=== PATIENT | female | born 1950 | race Caucasian/White ===

== ENCOUNTER 2019-01-06 07:29 | Inpatient (IN) | payer MEDICARE ==
[2018-12-31 14:35] LABS: BASOPHILS % (AUTO) 0.2 % (0-1); EOSINOPHILS % (AUTO) 0 % (0-6); LYMPHOCYTES # (AUTO) 0.6 X10'3 (1.1-4.8); MEAN CORPUSCULAR HEMOGLOBIN 34.5 PG (27.0-31.0); MEAN CORPUSCULAR HGB CONC 34.2 g/dL (33.0-36.5); MEAN PLATELET VOLUME 7.8 FL (7.4-10.4); MONOCYTES # (AUTO) 0.3 X10'3 (0-0.9); MONOCYTES % (AUTO) 3.5 % (2-12); NEUTROPHILS # (AUTO) 7.8 X10'3 (1.8-7.7); NEUTROPHILS % (AUTO) 89.3 % (42-75); PRE OP HEMATOCRIT 39.7 % (35.0-45.0); PRE OP HEMOGLOBIN 13.6 g/dL (12.0-16.0); PRE OP PLATELET COUNT 348 X10'3 (140-440); RED BLOOD COUNT 3.93 X10'6 (4.20-5.60); RED CELL DISTRIBUTION WIDTH 14.6 % (11.5-14.5)
[2018-12-31 14:38] LABS: PRE OP PROTIME 10.4 SECONDS (9.0-12.0)
[2018-12-31 14:50] LABS: ALBUMIN/GLOBULIN RATIO 1.2 (1.1-1.5); ALKALINE PHOSPHATASE 72 IU/L (46-116); BLOOD UREA NITROGEN 20 MG/DL (7-18); BUN/CREATININE RATIO 32.8 (6.6-38.0); CHLORIDE 101 MMOL/L (99-107); CREATININE 0.61 MG/DL (0.40-0.90); PRE OP ALT 44 U/L (30-65); PRE OP ANION GAP 7 (8-16); PRE OP AST 29 U/L (10-37); PRE OP BILIRUB, TOTAL 0.2 MG/DL (0.0-1.0); PRE OP GLUCOSE 99 MG/DL (70-104); PRE OP POTASSIUM 4.2 MMOL/L (3.4-5.1); PRE OP SODIUM 139 MMOL/L (135-145); TOTAL CARBON DIOXIDE 31.3 MMOL/L (24-32); TOTAL PROTEIN 7.4 G/DL (6.4-8.2); eGFR > 90 ML/MIN
[~2019-01-06] VITALS: Ht 142.9 cm; Wt 49.9 kg
[2019-01-06] VITALS (20 sets, daily range): BP systolic 122–171; BP diastolic 44–93
[~2019-01-06 07:29] MED LIST: ACET-2119 PO; ASCO500C15 PO; BIOT5CAP2 PO; CALC1TAB5 PO; CETI-194 PO; CYAN100097 SL; D-3 PO; D2 PO; DIPH25CA83 PO; DOCUSATE PO; HYDR50TA65 PO; K-2 PO; KRIL500C PO; LEVO100T PO; LUTE1CAP4 PO; MULT-378 PO; NORT75CA PO; PRE5T PO; SENNA PO; TEMA30CA5 PO; TRAM1TAB PO; TURM538C PO; UBID1CAP54 PO; VANCOMYCIN INJ 1000 MG in NORMAL SALINE 250ml IV.SOLN IV ONE; VENL150C2 PO; cefazolin/dext.iso 2gm/50ml 50 ML IV ONE; famotidine 20mg tablet PO ONE; hydrocortisone sod succ/PF 100mg/2ml inj. IV ONE; ringers solution, lacted 1,000 ML IV SCH; tranexamic acid inj. 1,000 MG in normal saline 100 ML IV ONE
[2019-01-06] MEDS ORDERED: ketorolac trometh. 30mg/ml inj. ONE (09:01)
[2019-01-06] MEDS ORDERED: ROPIVAcaine 0.5% (5mg/ml) 30ml vial ONE ×2 (09:01→11:43)
[2019-01-06] MEDS ORDERED: mineral oil 10ml sterile, topical TP ONE (09:01)
[2019-01-06] MEDS ORDERED: tetracaine 1% (10mg/ml) pres. free inj. ONE (10:07)
[2019-01-06] MEDS ORDERED: diphenhydrAMINE 50 mg/ml inj ONE (10:42)
[2019-01-06] MEDS ORDERED: fentaNYL/PF 50MCG/1 ML 2ML syringe ONE ×2 (10:51→11:47)
[2019-01-06] MEDS ORDERED: MIDAZolam 5mg/5ml vial ONE (11:13)
[2019-01-06] MEDS ORDERED: tranexamic acid inj. 500 MG in normal saline 100ml IV soln 100 ML IV ONE ×3 (11:15→19:00)
[2019-01-06] MEDS ORDERED: propofol inj 20 ML IV ONE ×3 (12:19→12:22)
[2019-01-06] MEDS ORDERED: LIDOcaine 1%/PF 5ML 10 MG/ML VIAL ONE (12:22)
[2019-01-06] MEDS ORDERED: ketamine 50mg/5ml syringe ONE (12:27)
[2019-01-06] MEDS ORDERED: meperidine/PF 50mg/ml syringe ONE (12:43)
[2019-01-06] MEDS ORDERED: HYDROmorphone inj. 0.5 MG/0.5 ML DISP.SYRIN IV PRN (13:10)
[2019-01-06] MEDS ORDERED: diphenhydrAMINE 25mg capsule PO PRN ×2 (13:10)
[2019-01-06] MEDS ORDERED: bisacodyl 10mg suppository rectal RC PRN (13:10)
[2019-01-06] MEDS ORDERED: acetaminophen 325mg tablet PO PRN (13:10)
[2019-01-06] MEDS ORDERED: K2 PO SCH (13:10)
[2019-01-06] MEDS ORDERED: ondansetron/PF 4mg/2ml inj IV PRN ×2 (13:10→13:20)
[2019-01-06] MEDS ORDERED: hydrOXYzine 25 MG tablet PO PRN (13:10)
[2019-01-06] MEDS ORDERED: oxyCODONE IR 5mg (immed. release) tablet PO PRN (13:10)
[2019-01-06] MEDS ORDERED: magnesium hydroxide 30ml (MOM) UD suspension PO PRN (13:10)
--- NOTE | 2019-01-06 13:15 | NUR ---
ADMITTED TO PACU FROM OR ACCOMPANIED BY ANESTHESIA. INTIAL PHYSICAL ASSESSMENT DONE AND RECORDED. REPORT RECEIVED FROM ANESTHESIA.
[2019-01-06] MEDS ORDERED: ROPIVAcaine 0.2%/PF PUMP/bolus 400 ML ADDCANAL SCH (13:19)
[2019-01-06] MEDS ORDERED: ringers solution, lacted 1,000 ML IV SCH (13:19)
[2019-01-06] MEDS ORDERED: proCHLORperazine 10 MG/2 ml inj IV PRN (13:20)
[2019-01-06] MEDS ORDERED: meperidine/PF 25mg/ml syringe IV PRN ×3 (13:20)
[2019-01-06] MEDS ORDERED: morphine 4 MG/ML inj SYRINge IV PRN ×2 (13:20)
[2019-01-06] MEDS: acetaminophen 325mg tablet PO SCH ×2 (14:00→20:58)
[2019-01-06] MEDS ORDERED: acetaminophen 325mg tablet PO SCH (14:00)
--- NOTE | 2019-01-06 14:45 | NUR ---
PACU DISCHARGE CRITERIA MET, REPORT GIVEN TO FLOOR. DENIES PAIN OR DISCOMFORT, TRANSFERRED TO ROOM IN STABLE GOOD CONDITION.
[2019-01-06] MEDS: ROPIVAcaine 0.2%/PF PUMP/bolus 550 ML INTERSCALE SCH ×2 (16:00→17:00)
[2019-01-06] MEDS: oxyCODONE IR 5mg (immed. release) tablet PO PRN ×2 (16:09→20:59)
[2019-01-06] MEDS: potassium cl 20mEq in 1/2 NS 1,000 ML IV SCH (16:49)
[2019-01-06] MEDS: ascorbic acid 500mg tablet PO SCH ×2 (16:54→21:01)
[2019-01-06] MEDS: ceFAZolin 1GM/D5W- ADD-VANTAGE 50 ML IV SCH (16:55)
[2019-01-06] MEDS ORDERED: diphenhydrAMINE 25mg capsule PO SCH (17:00)
[2019-01-06] MEDS ORDERED: TRAMADOL HCL PO SCH (17:00)
[2019-01-06] MEDS ORDERED: ACETAMINOPHEN PO SCH (17:00)
[2019-01-06] MEDS ORDERED: [UNRECOGNIZED DRUG - OTHER] PO SCH (17:00)
--- NOTE | 2019-01-06 18:06 | NUR ---
OnQ pump at 10ml/hr
[2019-01-06] MEDS: HYDROmorphone 1 mg/ml syringe IV PRN ×2 (19:02→23:57)
[2019-01-06] MEDS ORDERED: vancomycin/NS 1 GM ADD-VANTAGE 250 ML IV SCH (20:00)
[2019-01-06] MEDS ORDERED: TURMERIC ROOT EXTRACT PO SCH (20:00)
[2019-01-06] MEDS: enoxaparin 30mg/0.3ml syringe SQ SCH (20:00)
--- NOTE | 2019-01-06 20:00 | NUR ---
OnQ pump rate changed from 10cc/hr to 12cc/hr
[2019-01-06] MEDS ORDERED: SENNA PO SCH (21:00)
[2019-01-06] MEDS ORDERED: DOCUSATE PO SCH (21:00)
[2019-01-06] MEDS: sennosides 8.6mg tablet PO SCH (21:00)
[2019-01-06] MEDS: temazepam 15mg capsule PO SCH (21:01)
[2019-01-07] VITALS (7 sets, daily range): BP systolic 112–146; BP diastolic 39–77
[2019-01-07] MEDS: acetaminophen 325mg tablet PO SCH ×4 (01:30→20:50)
[2019-01-07] MEDS: ceFAZolin 1GM/D5W- ADD-VANTAGE 50 ML IV SCH (01:37)
[2019-01-07] MEDS: potassium cl 20mEq in 1/2 NS 1,000 ML IV SCH ×4 (01:37→21:10)
[2019-01-07] MEDS: oxyCODONE IR 5mg (immed. release) tablet PO PRN ×4 (03:20→18:11)
[2019-01-07] MEDS: HYDROmorphone 1 mg/ml syringe IV PRN ×3 (05:12→15:49)
--- NOTE | 2019-01-07 06:16 | NUR ---
Problems reprioritized. Patient report given, questions answered & plan of care reviewed with JESSICA NUNEZ.
[2019-01-07 06:18] LABS: ANION GAP 6 (8-16); CHLORIDE 106 MMOL/L (99-107); POTASSIUM 3.4 MMOL/L (3.5-5.1); SODIUM 143 MMOL/L (135-145)
[2019-01-07 06:39] LABS: BASOPHILS % (AUTO) 0.5 % (0-1); EOSINOPHILS # (AUTO) 0.1 X10'3 (0-0.9); EOSINOPHILS % (AUTO) 1.5 % (0-6); HEMATOCRIT 28.9 % (35.0-45.0); HEMOGLOBIN 9.7 g/dl (12.0-16.0); LYMPHOCYTES % (AUTO) 24.7 % (21-51); MEAN CORPUSCULAR HEMOGLOBIN 34.4 PG (27.0-31.0); MEAN CORPUSCULAR HGB CONC 33.7 g/dL (33.0-36.5); MEAN PLATELET VOLUME 7.7 FL (7.4-10.4); MONOCYTES % (AUTO) 12.3 % (2-12); NEUTROPHILS # (AUTO) 4.9 X10'3 (1.8-7.7); PLATELET COUNT 247 X10'3 (140-440); RED BLOOD COUNT 2.84 X10'6 (4.20-5.60); RED CELL DISTRIBUTION WIDTH 14.5 % (11.5-14.5); WHITE BLOOD COUNT 8.1 X10'3 (4.5-11.0)
[2019-01-07] MEDS ORDERED: D2 PO SCH (08:00)
[2019-01-07] MEDS ORDERED: CHOLECALCIFEROL 10000 UNIT PO SCH (08:00)
[2019-01-07] MEDS ORDERED: non-formulary drug (Ubidecarenone/Vit E Acetate (Co Q-10 100 Mg Softgel) 1 EACH) PO SCH (08:00)
[2019-01-07] MEDS ORDERED: multivitamins, therapeutics tablet PO SCH (08:00)
[2019-01-07] MEDS: nortriptyline 25mg capsule PO SCH (08:00)
[2019-01-07] MEDS ORDERED: non-formulary drug (Lutein/Zeaxanthin (Lutein-Zeaxanthin 25-5 Mg Sfgl) 1 EACH) PO SCH (08:00)
[2019-01-07] MEDS: VITAMIN D 10000 UNIT PO SCH (08:00)
[2019-01-07] MEDS: venlafaxine XR 75mg capsule (Q24H) PO SCH (08:10)
[2019-01-07] MEDS: predniSONE 5mg tablet PO SCH (08:10)
[2019-01-07] MEDS: cetirizine 10mg tablet PO SCH (08:11)
[2019-01-07] MEDS: levoTHYROXINE 100mcg tablet PO SCH (08:11)
[2019-01-07] MEDS: ascorbic acid 500mg tablet PO SCH ×4 (08:11→20:49)
[2019-01-07] MEDS: enoxaparin 30mg/0.3ml syringe SQ SCH ×2 (08:15→20:51)
--- NOTE | 2019-01-07 11:57 | NUR ---
Student documentation: I have reviewed all interventions, assessments performed and documented by Marisol Stafford. Student Medication Administration: For this medication-pass time frame, all medication were reviewed, dispensed, administered and documented per hospital policy by Marisol Stafford.
[2019-01-07] MEDS: FOLIC ACID PO SCH ×3 (12:30→20:57)
[2019-01-07] MEDS: MULTIVIT PO SCH ×3 (12:30→20:57)
[2019-01-07] MEDS: IRON PO SCH ×3 (12:30→20:57)
[2019-01-07] MEDS: CALCIUM PO SCH ×3 (12:30→20:57)
[2019-01-07] MEDS: VITAMIN K PO SCH ×3 (12:30→20:57)
[2019-01-07] MEDS: MINERALS PO SCH ×3 (12:30→20:57)
--- NOTE | 2019-01-07 13:55 | NUR ---
Joint replacement consult: Pt seen by RD for written/verbal high protein ed. RD reviewed high protein needs for wound healing, immune strength, high protein foods, and protein supplementation options. RD contact information provided in case of further questions. Pt agrees to cottage cheese x2 BIDLD; dietary notified. Pt hx dino-en-y takes bariatric MVI w/ protein snacks at bedside. 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 Addendum: 01/07/19 at [address] Amended: Links added.
[2019-01-07] MEDS: sennosides 8.6mg tablet PO SCH (20:48)
[2019-01-07] MEDS: celeCOXIB 100mg capsule PO SCH (20:49)
[2019-01-07] MEDS: temazepam 15mg capsule PO SCH (20:50)
[2019-01-08] MEDS: acetaminophen 325mg tablet PO SCH ×2 (01:33→07:53)
[2019-01-08] MEDS: oxyCODONE IR 5mg (immed. release) tablet PO PRN ×2 (01:34→05:41)
[2019-01-08] MEDS: potassium cl 20mEq in 1/2 NS 1,000 ML IV SCH (05:10)
[2019-01-08] MEDS: ROPIVAcaine 0.2%/PF PUMP/bolus 550 ML INTERSCALE SCH (05:41)
[2019-01-08 06:00] VITALS: BP 149/65
--- NOTE | 2019-01-08 06:30 | NUR ---
Problems reprioritized. Patient report given, questions answered & plan of care reviewed with JESSICA ALMEIDA.
[2019-01-08 06:49] LABS: BASOPHILS % (AUTO) 0.6 % (0-1); EOSINOPHILS # (AUTO) 0.1 X10'3 (0-0.9); HEMATOCRIT 27.7 % (35.0-45.0); HEMOGLOBIN 9.5 g/dl (12.0-16.0); LYMPHOCYTES # (AUTO) 1.2 X10'3 (1.1-4.8); LYMPHOCYTES % (AUTO) 17.8 % (21-51); MEAN CORPUSCULAR HEMOGLOBIN 34.5 PG (27.0-31.0); MEAN CORPUSCULAR HGB CONC 34.4 g/dL (33.0-36.5); MEAN CORPUSCULAR VOLUME 100.4 FL (78-98); MEAN PLATELET VOLUME 7.6 FL (7.4-10.4); MONOCYTES # (AUTO) 0.9 X10'3 (0-0.9); MONOCYTES % (AUTO) 13.8 % (2-12); NEUTROPHILS # (AUTO) 4.4 X10'3 (1.8-7.7); NEUTROPHILS % (AUTO) 66.8 % (42-75); PLATELET COUNT 237 X10'3 (140-440); RED BLOOD COUNT 2.76 X10'6 (4.20-5.60); RED CELL DISTRIBUTION WIDTH 14.2 % (11.5-14.5); WHITE BLOOD COUNT 6.6 X10'3 (4.5-11.0)
--- NOTE | 2019-01-08 06:55 | NUR ---
Patient in room [facility]THO 4013. I have received report from Ana LOPEZ and had the opportunity to ask questions and assume patient care.
[2019-01-08] MEDS: VITAMIN K PO SCH (07:30)
[2019-01-08] MEDS: CALCIUM PO SCH (07:30)
[2019-01-08] MEDS: MINERALS PO SCH (07:30)
[2019-01-08] MEDS: FOLIC ACID PO SCH (07:30)
[2019-01-08] MEDS: MULTIVIT PO SCH (07:30)
[2019-01-08] MEDS: IRON PO SCH (07:30)
[2019-01-08] MEDS: VITAMIN D 10000 UNIT PO SCH (07:47)
[2019-01-08] MEDS: enoxaparin 30mg/0.3ml syringe SQ SCH (07:51)
[2019-01-08] MEDS: ascorbic acid 500mg tablet PO SCH (07:52)
[2019-01-08] MEDS: levoTHYROXINE 100mcg tablet PO SCH (07:53)
[2019-01-08] MEDS: celeCOXIB 100mg capsule PO SCH (07:53)
[2019-01-08] MEDS: nortriptyline 25mg capsule PO SCH (07:53)
[2019-01-08] MEDS: predniSONE 5mg tablet PO SCH (07:54)
[2019-01-08] MEDS: cetirizine 10mg tablet PO SCH (07:54)
[2019-01-08] MEDS: venlafaxine XR 75mg capsule (Q24H) PO SCH (07:55)
[2019-01-08 10:00] VITALS: BP 136/52
--- NOTE | 2019-01-08 10:30 | NUR ---
patient discharged to home with with all belongings, patient educated on new meds, onQ pump and kenneth dressing, patient stable upon discharge
[2019-01-08] MEDS ORDERED: acetaminophen 325mg tablet PO PRN (13:10)
== END 2019-01-08 10:25 | disposition home or self-care (01) | DRG 470 ==
LOC: PAS IN 07:29 → EDSTATUS 12:45 → ORTHO 4S 15:00
PROVIDERS: ADMIT Orthopaedic Surgery; ATTEND Orthopaedic Surgery
PROC: 8E0YXBZ Computer Assisted Procedure of Lower Extremity (ICD-10-PCS; 2019-01-06)
PROC: 3E0T3BZ Introduction of Anesthetic Agent into Peripheral Nerves and Plexi, Percutaneous Approach (ICD-10-PCS; 2019-01-06)
PROC: 0SRC0J9 Replacement of Right Knee Joint with Synthetic Substitute, Cemented, Open Approach (ICD-10-PCS; principal; 2019-01-06 10:42)
DX: M17.11 Unilateral primary osteoarthritis, right knee (principal); D62 Acute posthemorrhagic anemia; F32.9 Major depressive disorder, single episode, unspecified; E03.9 Hypothyroidism, unspecified; M79.7 Fibromyalgia; M17.0 Bilateral primary osteoarthritis of knee; M21.00 Valgus deformity, not elsewhere classified, unspecified site; Z98.84 Bariatric surgery status
CPT/HCPCS: 36415; 80051; 80053; 82948; 84443; 85025; 85610; 85730; 87081; 97116; 97162; 97530; A4215; A4338; A6454; A7000; C1713; C1758; C1776; G0378; J0690; J1170; J1200; J1650; J1720; J1885; J2175; J2250; J2704; J2795; J3010; J3370; J3480; J7120; J7512; Q0163; Z7610